=== PATIENT | female | born 1970 | race African-American/Black ===

== ENCOUNTER → 2016-12-15 | Emergency (ER) | payer BC ==
[~2016-12-15] MED LIST: HEMOQUE TEST 1 EACH EACH ONE
--- NOTE | 2016-12-15 09:34 | PDOC ---
History of Present Illness - General History Source: EMS Exam Limitations: Clinical Condition, Intubated <Arabella Garrett - Last Filed: 12/15/16 10:53> - General History Source: EMS Exam Limitations: Unresponsive - History of Present Illness Initial Comments: 12/15/16 09:35 The patient is a 46 year old female, BIBA with a significant past medical history of CHF, asthma, pacemaker, who presents to the emergency department s/p cardiac arrest. EMS reports arriving on scene with the patient complaining of SOB. The patient was found by EMS with multiple albuterol treatments on the floor. EMS reports the patients O2 Sat became less than 75 at her house and received treatments of epinephrine, albuterol (x2), and decadron. EMS reports the patient remained hypoxic in the field and put on CPAP. EMS also reports giving treatments of etomidate and metoprolol succinate en route to the ER. EMS reports the patient was conversing with EMS staff with a notable pulse just prior to EMS arrival to the ER. Upon ER arrival the patient was intubated, had no pulse, and was non conversive with ER staff. The patient was given multiple treatments of epinephrine at 8:59 am, 9:04am, and 9:09am. The patient was given one amp of bicarbonate and Dextrose at 9:25. ER staff started chest compressions on the patient just after patients arrival in the ER. The patient coded at 9:27am. <Serjio Garcia - Last Filed: 12/15/16 10:56> - General Stated Complaint: CARDIAC ARREST Time Seen by Provider: 12/15/16 09:33 Past History - Past Medical History Asthma: Yes Hypercholesterolemia: Yes - Psycho/Social/Smoking Cessation Hx Anxiety: Yes Suicidal Ideation: No Smoking History: Former smoker Have you smoked in the past 12 months: Yes Number of Cigarettes Smoked Daily: 5 If you are a former smoker, when did you quit?: 6 months ago 'Breaking Loose' booklet given: 09/09/15 Hx Alcohol Use: Yes (Social) Drug/Substance Use Hx: Yes (Marijuana) Substance Use Type: Marijuana <Arabella Garrett - Last Filed: 12/15/16 10:53> <Serjio Garcia - Last Filed: 12/15/16 10:56> - Past Medical History Allergies/Adverse Reactions: Allergies Allergy/AdvReac Type Severity Reaction Status Date / Time No Known Allergies Allergy Verified 12/15/16 09:11 Home Medications: Ambulatory Orders Albuterol Sulfate Inhaler - [Ventolin HFA Inhaler -] 1 - 2 inh PO Q4H #1 inhaler 09/09/15 Alprazolam [Xanax] 0.5 mg PO DAILY 09/09/15 Ramipril 5 mg PO DAILY 09/09/15 Warfarin Na [Coumadin -] 8.5 mg PO DAILY 09/09/15 Cephalexin Monohydrate [Keflex -] 250 mg PO Q8H #21 capsule 06/24/16 Spironolactone [Aldactone] 25 mg PO DAILY 06/24/16 Sulfamethoxazole/Trimethoprim [Bactrim Ds -] 1 tab PO BID #14 tablet 06/24/16 Review of Systems - Review of Systems Able to Perform ROS?: No <Serjio Garcia - Last Filed: 12/15/16 10:56> *Physical Exam - Physical Exam Comments: 12/15/16 10:36 GENERAL: Obese and intubated. HEENT: Pupils are fixed and dilated. Normocephalic, atraumatic. NECK: Supple. CARDIOVASCULAR: No heart tones. No pulse found. PULMONARY: Equal bilateral breath sounds with expiratory wheezes. ABDOMINAL: Soft. Non-tender. Non-distended. EXTREMITIES: No cyanosis. No clubbing. No edema. No calf tenderness. Two non functions IO in the tib fib. SKIN: Warm and dry. No rashes. No jaundice. NEUROLOGICAL: Unable to perform. <Serjio Garcia - Last Filed: 12/15/16 10:56> Medical Decision Making - Medical Decision Making 12/15/16 10:01 46-year-old female with history of anxiety, atrial fibrillation, cardiomyopathy with ICD placement, on Coumadin who presents to the emergency department in full cardiopulmonary arrest. Per EMS the patient had a chief complaint of shortness of breath and had diminished breath sounds bilaterally. CPAP was initially started in the field and then the patient was intubated en route to the emergency department for respiratory failure. Upon arrival to the ED the patient was connected to the monitor and was found to be paced with no pulse bedside ultrasound was performed and there was no cardiac activity and no pulse with Doppler ultrasound. Therefore CPR was started with active chest compressions. ET tube placement was confirmed with auscultation. Magnesium sulfate 2g IV was given.The patient received epinephrine 4, bicarbonate 1, dextrose 50 g IV with no success. Focused bedside cardiac ultrasound revealed no cardiac activity and no pericardial fluid. The patient was pronounced at 9:27 AM. The patient's son, Jermaine, was informed at the hospital. The plan is to call the vice president medical affairs and sharing network.The patient's PCP is Dr. Ramirez--the practice was called and one of her partners were notified. 12/15/16 10:50 Addendum: DC Leo called. The case was accepted as an DC case--/ <Arabella Garrett - Last Filed: 12/15/16 10:53> - Critical Care Time Total Critical Care Time (minutes): 31 Critical Care Statement: The care of this patient involved high complexity decision making to prevent further life threatening deterioration of the patient 's condition and/or to evalute & treat vital organ system(s) failure or risk of failure. - Medical Decision Making 12/15/16 10:08 Call made to PCP, [phone], case discussed with covering physician. <Serjio Garcia - Last Filed: 12/15/16 10:56> *DC/Admit/Observation/Transfer - Discharge Dispostion Admit: No - Attestations Physician Attestion: 12/15/16 09:34 I, Dr. Arabella Garrett, attest that the scribes documentation that appears above has been prepared under my direction and personally reviewed by me in its entirety. I confirmed that the note above accurately reflects all work, treatment, procedures, and medical decision-making performed by me. <Arabella Garrett - Last Filed: 12/15/16 10:53> - Attestations Scribe Attestion: 12/15/16 09:35 Documentation prepared by Serjio Garcia, acting as medical educator for Arabella Garrett MD. <Serjio Garcia - Last Filed: 12/15/16 10:56> Diagnosis at time of Disposition: Cardiac arrest - Discharge Dispostion Disposition: Condition at time of disposition:
[2016-12-15 12:17] VITALS: BP 160/100; TEMP 98
== END | disposition expired ==
LOC: JER 08:56
PROC: 5A12012 Performance of Cardiac Output, Single, Manual (ICD-10-PCS; principal; 2016-12-15)
PROC: 0BH17EZ Insertion of Endotracheal Airway into Trachea, Via Natural or Artificial Opening (ICD-10-PCS; 2016-12-15)
DX: I46.9 Cardiac arrest, cause unspecified (principal); I50.9 Heart failure, unspecified; J45.909 Unspecified asthma, uncomplicated; I48.91 Unspecified atrial fibrillation; Z79.01 Long term (current) use of anticoagulants; F41.9 Anxiety disorder, unspecified; O90.3 Peripartum cardiomyopathy; Z95.0 Presence of cardiac pacemaker
CPT/HCPCS: 99282-25